=== PATIENT | female | born 1995 | race Caucasian/White ===

== ENCOUNTER → 2023-10-08 07:01 | Outpatient (REF) | payer BC, SELFPAY | LOC: PNTC 07:01 | PROVIDERS: ATTENDING PHYSICIAN Obstetrics & Gynecology | DX: O99.210 Obesity complicating pregnancy, unspecified trimester (principal); O31.11X0 Continuing pregnancy after spontaneous abortion of one fetus or more, first trimester, not applicable or unspecified | CPT/HCPCS: 76816 ==

== ENCOUNTER 2023-10-26 14:45 | Observation (INO) | payer BC, SELFPAY ==
[2023-10-26 14:52] VITALS: BP 126/68; BMI 35.8
== END 2023-10-26 16:01 | disposition home or self-care (01) ==
LOC: LDRP 14:45
PROVIDERS: ADMITTING PHYSICIAN Obstetrics & Gynecology; FAMILY PHYSICIAN Internal Medicine
DX: O36.8130 Decreased fetal movements, third trimester, not applicable or unspecified (principal); Z3A.34 34 weeks gestation of pregnancy
CPT/HCPCS: G0378

== ENCOUNTER 2023-11-18 01:32 | Observation (INO) | payer BC, SELFPAY ==
[2023-11-18 02:18] VITALS: BP 124/72; BMI 37.1
== END 2023-11-18 03:12 | disposition home or self-care (01) ==
LOC: LDRP 01:32
PROVIDERS: ADMITTING PHYSICIAN Obstetrics & Gynecology
DX: O47.1 False labor at or after 37 completed weeks of gestation (principal); Z3A.38 38 weeks gestation of pregnancy; Z88.1 Allergy status to other antibiotic agents; Z88.0 Allergy status to penicillin
CPT/HCPCS: 36415; 86850; 86900; 86901; G0378

== ENCOUNTER → 2023-12-07 14:06 | Outpatient (REF) | payer BC, SELFPAY | LOC: RAD 14:06 | PROVIDERS: ATTENDING PHYSICIAN Obstetrics & Gynecology; FAMILY PHYSICIAN Internal Medicine | DX: Z01.818 Encounter for other preprocedural examination (principal) | CPT/HCPCS: 76815 ==

== ENCOUNTER 2023-12-07 14:40 | Observation (INO) | payer BC, SELFPAY ==
[2023-12-07 14:46] VITALS: BP 134/81; BMI 36.8
== END 2023-12-07 15:30 | disposition home or self-care (01) ==
LOC: LDRP 14:40
PROVIDERS: ADMITTING PHYSICIAN Obstetrics & Gynecology; FAMILY PHYSICIAN Obstetrics & Gynecology
DX: O47.1 False labor at or after 37 completed weeks of gestation (principal); Z3A.40 40 weeks gestation of pregnancy
CPT/HCPCS: 76815; G0378

== ENCOUNTER 2023-12-10 19:30 | Inpatient (IN) | payer BC, SELFPAY ==
[2023-12-10 20:05] VITALS: BMI 36.8
[2023-12-10 21:05] LABS: % Basophils 0.3 % (0-2); % Eosinophils 0.8 % (0-6); % Immature Granulocytes 0.6 % (0-0.5); % Lymphocytes 19.9 % (20.5-51.1); % Monocytes 7.1 % (1.7-9.3); % Neutrophils 71.3 % (42.2-75.2); Absolute Eosinophils 0.1 10^3/uL (0-0.7); Absolute Immature Granulocytes 0.1 10^3/uL (0-0.05); Absolute Lymphocytes 2.4 10^3/uL (1.2-3.4); Absolute Monocytes 0.8 10^3/uL (0.1-0.6); Absolute Neutrophils 8.5 10^3/uL (1.4-6.5); Hematocrit 33.9 % (37.0-47.0); Hemoglobin 12.3 g/dL (12.0-16.0); Mean Corp Hgb Conc. 36.3 g/dL (33.0-37.0); Mean Corpuscular Hgb 32.6 pg (27.0-31.0); Mean Corpuscular Volume 89.9 fL (81.0-99.0); Nucleated Red Blood Cells % 0 %; Platelet Count 220 10^3/uL (130-400); Red Blood Cell Count 3.77 10^6/uL (4.20-5.40); White Blood Cell Count 11.9 10^3/uL (4.8-10.8)
[2023-12-10] MEDS: CYTOTEC 50 MICROGRAM VAG (21:44)
[2023-12-10 22:07] VITALS: BP 133/82
[2023-12-11 00:42] VITALS: BMI 40.4
[2023-12-11] MEDS: CYTOTEC 25 MICROGRAM PO (02:51)
[2023-12-11] MEDS: MORPHINE SULFATE 2 MG IV (05:06)
[2023-12-11] MEDS: SUBLIMAZE 100 MCG EPIDURAL (10:31)
[2023-12-11] MEDS: FENTANYL/BUPIVACAINE 100 EPIDURAL (10:31)
[2023-12-11] MEDS: CYTOTEC PO ×2 (12:28→12:29)
[2023-12-11] MEDS: PITOCIN 30 UNITS/NSS 500 ML IV (15:15)
[2023-12-11 15:31] LABS: Cord ABG Comment CORD BLOOD
[2023-12-11 15:33] LABS: B.E. Cord ABG -1.6 mMOL/L; HCO3 Cord ABG 24.8 mmol/L; O2 Saturation % Cord ABG 57.5 %; PCO2 Cord ABG 47 mmHg; PO2 Cord ABG 22 mmHg; pH Cord ABG 7.33
[2023-12-11] MEDS: CYTOTEC 800 MCG RECTAL (15:35)
[2023-12-11] MEDS: MOTRIN 600 MG PO (18:25)
[2023-12-12] MEDS: MOTRIN 600 MG PO ×4 (00:15→19:34)
[2023-12-12 04:58] LABS: Hematocrit 29.1 % (37.0-47.0); Hemoglobin 10.3 g/dL (12.0-16.0)
[2023-12-12] MEDS: TYLENOL 650 MG PO ×3 (11:46→21:59)
[2023-12-12] MEDS: CLARITIN 10 MG PO (11:47)
[2023-12-12] MEDS: PRENATAL PLUS 1 TABLET PO (11:47)
[2023-12-13] MEDS: MOTRIN 600 MG PO ×2 (04:08→10:46)
[2023-12-13] MEDS: PRENATAL PLUS 1 TABLET PO (08:18)
[2023-12-13] MEDS: CLARITIN 10 MG PO (08:18)
[2023-12-13] MEDS: TYLENOL 650 MG PO (08:22)
[2023-12-13] MEDS: SENOKOT-S 1 TABLET PO (08:23)
[2023-12-14 14:53] LABS: Syphilis/T. pallidum Ab Reflex Negative (Negative)
== END 2023-12-13 12:00 | disposition home or self-care (01) | DRG 807 ==
LOC: LDRP 19:30
PROVIDERS: Obstetrics & Gynecology; ADMITTING PHYSICIAN Obstetrics & Gynecology
PROC: 10D07Z6 Extraction of Products of Conception, Vacuum, Via Natural or Artificial Opening (ICD-10-PCS; 2023-12-11)
PROC: 10907ZC Drainage of Amniotic Fluid, Therapeutic from Products of Conception, Via Natural or Artificial Opening (ICD-10-PCS; 2023-12-11)
PROC: 3E033VJ Introduction of Other Hormone into Peripheral Vein, Percutaneous Approach (ICD-10-PCS; 2023-12-11)
PROC: 3E0DXGC Introduction of Other Therapeutic Substance into Mouth and Pharynx, External Approach (ICD-10-PCS; 2023-12-11)
PROC: 0KQM0ZZ Repair Perineum Muscle, Open Approach (ICD-10-PCS; 2023-12-11)
DX: O48.0 Post-term pregnancy (principal); Z37.0 Single live birth; Z3A.41 41 weeks gestation of pregnancy; O76 Abnormality in fetal heart rate and rhythm complicating labor and delivery; O70.1 Second degree perineal laceration during delivery; G43.909 Migraine, unspecified, not intractable, without status migrainosus; Z88.1 Allergy status to other antibiotic agents; Z88.0 Allergy status to penicillin
CPT/HCPCS: 82803; 85014; 85018; 85025; 86780; 86850; 86900; 86901

== ENCOUNTER 2025-02-01 11:37 | Emergency (ER) | payer BC, SELFPAY ==
[2025-02-01] VITALS (7 sets, daily range): BP systolic 111–139; BP diastolic 73–90; BMI 33.9
[2025-02-01 13:14] LABS: % Basophils 0.7 % (0-2); % Eosinophils 1.2 % (0-6); % Immature Granulocytes 0.2 % (0-0.5); % Lymphocytes 23.9 % (20.5-51.1); % Monocytes 6.5 % (1.7-9.3); % Neutrophils 67.5 % (42.2-75.2); Absolute Basophils 0.1 10^3/uL (0-0.2); Absolute Eosinophils 0.1 10^3/uL (0-0.7); Absolute Lymphocytes 2.1 10^3/uL (1.2-3.4); Absolute Monocytes 0.6 10^3/uL (0.1-0.6); Absolute Neutrophils 5.8 10^3/uL (1.4-6.5); Hematocrit 40.3 % (37.0-47.0); Mean Corp Hgb Conc. 34.7 g/dL (33.0-37.0); Mean Corpuscular Hgb 32.2 pg (27.0-31.0); Mean Corpuscular Volume 92.6 fL (81.0-99.0); Nucleated Red Blood Cells % 0 %; Platelet Count 251 10^3/uL (130-400); Red Blood Cell Count 4.35 10^6/uL (4.20-5.40); Red Cell Dist. Width 11.5 % (11.5-14.5); White Blood Cell Count 8.6 10^3/uL (4.8-10.8)
[2025-02-01 13:17] LABS: ALT (SGPT) 26 U/L (0-35); AST (SGOT) 17 U/L (14-36); Albumin 4.9 g/dl (3.5-5.0); Alkaline Phosphatase 66 U/L (38-126); Blood Urea Nitrogen 14 mg/dl (7-17); Calcium 9.4 mg/dl (8.4-10.2); Carbon Dioxide 28 mmol/L (22-30); Chloride 109 mmol/L (98-107); Estimated Creatinine Clearance > 125 ml/min; Glucose 96 mg/dl (70-99); Lipase 136 U/L (23-300); Potassium 4.6 mmol/L (3.5-5.1); Sodium 141 mmol/L (135-145); Total Bilirubin 0.9 mg/dl (0.2-1.3); Total Protein 7.5 g/dl (6.3-8.2); eGFR > 60.00
[2025-02-01 13:34] LABS: Urine Albumin Negative (Neg - Trace); Urine Bilirubin Negative (Negative); Urine Character Clear (Clear); Urine Color Yellow; Urine Glucose Negative (Negative); Urine Ketone 1+ (Negative); Urine Leukocyte Negative (Negative); Urine Nitrite Negative (Negative); Urine Occult Blood Negative (Negative); Urine Specific Gravity 1.015 (<1.030); Urine Urobilinogen Negative (Neg - 1+); Urine pH 6.5 (5.0-9.0)
--- NOTE | 2025-02-01 15:02 | ED.GENMED ---
History of Present Illness
<ELZA Soria - Last Filed: 02/03/25 13:03>
General
Chief Complaint: Abdominal Pain
Source: patient
Exam Limitations: none
Time Seen by Provider: 02/01/25 12:49
Nursing documentation reviewed up to this point in time: agreed with
History of Present Illness
History of Present Illness:
29-year-old female presents to the ER for evaluation. Pt reports that in the middle of the night she noted sharp left lower quadrant pain. Pain is gotten progressively worse and has intensified. She has felt now wrapping around to her left back.
She denies any urinary urgency burning or frequency but feels that pain does intensify when she urinates and this left lower quadrant region.
She is not sure if she has light spotting today her normal last menstrual pair was 2 weeks ago.
She is 1 para 1.
Review of Systems
<ELZA Soria - Last Filed: 02/03/25 13:03>
Review of Systems
Allergies reviewed?: Yes
All Other Systems: ROS reviewed and negative except as documented in HPI and ROS
Constitutional: Reports no symptoms; Denies fever, fatigue or chills
Respiratory: Reports no symptoms
Cardiac: Reports no symptoms
ABD/GI: Reports abdominal pain; Denies nausea, vomiting or diarrhea
: Reports flank pain; Denies urgency
Musculoskeletal: Reports other (left lower back/flank pain )
Skin: Reports no symptoms
Psychiatric: Reports no symptoms
Phy Exam
<ELZA Soria - Last Filed: 02/03/25 13:03>
General Physical Exam
General Presentation: no apparent distress
General age: appears stated age
General Skin: warm and dry
General Habitus: normal
General Mental: alert
General Hydration: appears well hydrated
Gastrointestinal Exam
Gastrointestinal Exam: non tender and soft
Neurological Exam
Neurological Exam: alert and oriented x3
Musculoskeletal Exam
Musculoskeletal Exam: full ROM
Skin Exam
Skin Exam: normal color and warm/dry
Psychiatric Exam
Psychiatric Exam: normal mood/affect
Course
<ELZA Soria - Last Filed: 02/03/25 13:03>
Orders/Labs/Results
Orders:
Orders
02/01/25 12:50
Urinalysis Reflex To Culture Urgent
Date Specimen was Collected: 02/01/25
Time Specimen was Collected: 12:46
02/01/25 12:57
Complete Blood Count/With Diff Urgent
Comprehensive Metabolic Panel Urgent
HCG, Serum Qualitative Screen Urgent
Comment: ADD ON
Lipase Urgent
02/01/25 15:08
Add On- LAB Urgent
Tests Added?: HCG qualitative
Ketorolac [Toradol] 15 mg IV NOW STA
US Pelvis Only (non-obstetric) Urgent
Comment:
Reason For Exam: llq pain
02/01/25 15:10
CT Abd/pel Without Iv Or Oral Urgent
Comment:
Reason For Exam: left flank pain
02/01/25 15:12
0.9% Sodium Chloride 1000 ml [Nss] 1,000 ml IV BOLUS
Abnormal Lab Results
02/01/25 02/01/25
12:50 12:57
MCH 32.2 H pg
(27.0-31.0)
Chloride 109 H mmol/L
(98-107)
Urine Ketones 1+ A
(Negative)
02/01/25 12:57
02/01/25 12:57
Vital Signs
Initial and Last Documented VS:
Initial Vital Signs
Temp Pulse Resp BP Pulse Ox
97.6 F 67 18 139/90 100
02/01/25 11:39 06/01/25 11:39 02/01/25 11:39 02/01/25 11:39 02/01/25 11:39
Last Documented Vital Signs
Temp Pulse Resp BP Pulse Ox
97.6 F 67 18 117/75 98
02/01/25 11:39 02/01/25 11:39 02/01/25 11:39 02/01/25 17:00 02/01/25 17:15
<Karl Gooden Jr., PA-Sunny - Last Filed: 02/01/25 17:43>
Orders/Labs/Results
Orders:
Orders
02/01/25 12:50
Urinalysis Reflex To Culture Urgent
Date Specimen was Collected: 02/01/25
Time Specimen was Collected: 12:46
02/01/25 12:57
Complete Blood Count/With Diff Urgent
Comprehensive Metabolic Panel Urgent
HCG, Serum Qualitative Screen Urgent
Comment: ADD ON
Lipase Urgent
02/01/25 15:08
Add On- LAB Urgent
Tests Added?: HCG qualitative
Ketorolac [Toradol] 15 mg IV NOW STA
US Pelvis Only (non-obstetric) Urgent
Comment:
Reason For Exam: llq pain
02/01/25 15:10
CT Abd/pel Without Iv Or Oral Urgent
Comment:
Reason For Exam: left flank pain
02/01/25 15:12
0.9% Sodium Chloride 1000 ml [Nss] 1,000 ml IV BOLUS
Abnormal Lab Results
02/01/25 02/01/25
12:50 12:57
MCH 32.2 H pg
(27.0-31.0)
Chloride 109 H mmol/L
(98-107)
Urine Ketones 1+ A
(Negative)
02/01/25 12:57
02/01/25 12:57
Vital Signs
Initial and Last Documented VS:
Initial Vital Signs
Temp Pulse Resp BP Pulse Ox
97.6 F 67 18 139/90 100
02/01/25 11:39 02/01/25 11:39 02/01/25 11:39 02/01/25 11:39 02/01/25 11:39
Last Documented Vital Signs
Temp Pulse Resp BP Pulse Ox
97.6 F 67 18 117/75 98
02/01/25 11:39 02/01/25 11:39 02/01/25 11:39 02/01/25 17:00 02/01/25 17:15
<ELZA Soria - Last Filed: 02/03/25 13:03>
MDM/Problems Addressed
MDM/Problems Addressed:
labs nml, imaging pending, pt very comfortable after Toradol.
Will check CAT scan to rule out kidney stone and US to look at ovary. If all imaging is negative patient stable to discharge home. Care of patient this time transferred to Ed MITA Gooden.
<ELZA Soria - Last Filed: 02/03/25 13:03>
*Radiology
Radiology exam reviewed: radiology read reviewed
*Pulse Oximetry
Patient hypoxic: no
<Karl Gooden Jr., PA-C - Last Filed: 02/01/25 17:43>
*Critical Care Note
Total Time (30-74mins, 75-104mins- exclusive of procedures): Not Applicable
<Karl Gooden Jr., PA-C - Last Filed: 02/01/25 17:43>
Update Note
Update Note:
CT abdomen pelvis as well as ultrasound of the pelvis without emergent findings. Patient no distress with significant improvement of symptoms. No evidence of any life-threatening process at this time. Advised for close outpatient follow-up.
Return precautions given.
ED Attending Note
<ELZA Soria - Last Filed: 02/03/25 13:03>
-
Portions of this chart may have been created with voice recognition software.� Occasional wrong word or��sound alike� substitutions may have occurred due to the inherent limitations of voice recognition software.
Discharge Plan
Departure
Patient Disposition: Home (Routine Discharge)
Date of Disposition: 02/01/25
Time of Disposition: 17:40
Patient with high blood pressure during this ER visit?: No
Condition: Good
Covid-19: Not Applicable
Discharge Problem:
Abdominal pain
Instructions: Abdominal Pain
Prescriptions:
No Action
prenat.vits,juana,tej-jhtl-pyygo Tablet
1 tab PO DAILY
loratadine [Claritin] 10 mg Tablet
10 mg PO DAILY
ibuprofen 600 mg Tablet
600 mg PO Q6HPRN PRN (Reason: moderate pain/cramps) Qty: 90 0RF
Referrals:
Jean Daniels, DO [Family Provider, Internal Medicine]
Activity Restrictions/Additional Instructions:
You came to the emergency department today with concerns of abdominal pain. You had a reassuring assessment. Please will close with your primary care doctor within a week. Return for any worsening, new or concerning symptoms.
Interventions
Interventions:
*Risk Screen - Suicide Last Done: 02/01/25 11:39
*General Assessment Last Done: 02/01/25 11:39
*Neglect/Abuse Screening Last Done: 02/01/25 11:39
*ED- Fall Risk Assessment Last Done: 02/01/25 12:45
*ED COVID-19 Vaccine History Last Done: 02/01/25 12:45
*Nursing Disposition Last Done: 02/01/25 17:54
BI-Pzzfmw-Sqdmzgtulf Assessment Last Done: 02/01/25 12:45
Discharge Date and Time
Discharge Date/Time: 02/01/25 18:03
Print Language: BENGALI
[2025-02-01] MEDS: TORADOL 15 MG IV (15:25)
[2025-02-01] MEDS: NSS 1000 IV (15:25)
[2025-02-01 15:36] LABS: HCG, Serum Qualitative Screen Negative
== END 2025-02-01 18:03 | disposition home or self-care (01) ==
LOC: EMR 11:37
PROVIDERS: EMERGENCY PHYSICIAN Student in an Organized Health Care Education/Training Program; FAMILY PHYSICIAN Internal Medicine
DX: R10.32 Left lower quadrant pain (principal)
CPT/HCPCS: 96374; 96361; 99284; 74176; 76856; 80053; 81003; 83690; 84703; 85025

== ENCOUNTER 2025-04-23 16:36 | Emergency (ER) | payer BC, SELFPAY ==
[2025-04-23 16:44] VITALS: BP 123/72
[2025-04-23 17:10] LABS: Hematocrit 37.5 % (37.0-47.0); Hemoglobin 13.0 g/dL (12.0-16.0); Mean Corp Hgb Conc. 34.7 g/dL (33.0-37.0); Mean Corpuscular Volume 91.2 fL (81.0-99.0); Nucleated Red Blood Cells % 0 %; Platelet Count 264 10^3/uL (130-400); Red Cell Dist. Width 11.9 % (11.5-14.5)
--- NOTE | 2025-04-23 17:27 | ED.GENMED ---
History of Present Illness
General
Chief Complaint: Abdominal Symptoms
Source: patient
Exam Limitations: none
Time Seen by Provider: 04/23/25 17:14
Nursing documentation reviewed up to this point in time: agreed with
History of Present Illness
History of Present Illness:
Patient is a 29-year-old female approximate weeks 4 days followed by [facility] presents to the ER for evaluation nausea vomiting. Patient is approximate 8 weeks 4 days and she has been vomiting for the
past 2 and half weeks unable to tolerate oral fluids. She is on Unisom and B6 without relief. She does report a prescription for Reglan was called in however she did not take it yet. She did have a normal ultrasound done today. Her last
menstrual period was 02/22 and her estimated due date is 11/29/25.
She denies any abdominal pain or vaginal bleeding. Denies any urinary frequency or urgency.
Phy Exam
General Physical Exam
General Presentation: no apparent distress
General age: appears stated age
General Skin: warm and dry
General Habitus: normal
General Mental: alert
General Hydration: appears well hydrated
Cardiovascular Exam
Cardiovascular Exam: regular rate/rhythm, no murmur and normal peripheral pulses
Pulmonary Exam
Pulmonary Exam: lungs clear and no respiratory distress
Gastrointestinal Exam
Gastrointestinal Exam: normal bowel sounds, non tender and soft
Course
Orders/Labs/Results
Orders:
Orders
04/23/25 16:57
Complete Blood Count/With Diff Urgent
Comprehensive Metabolic Panel Urgent
HCG, Beta Quantitative [Beta HCG Quantitative] Urgent
Is this a screen?: No
04/23/25 17:43
0.9% Sodium Chloride 1000 ml [Nss] 1,000 ml IV BOLUS
Metoclopramide [Reglan] 10 mg IV NOW STA
04/23/25 19:12
UA Reflex to Culture [Urinalysis Reflex To Culture] Urgent
Date Specimen was Collected: 04/23/25
Time Specimen was Collected: 19:07
Urine Microscopic Reflex Cult Urgent
Urine Culture Urgent
JODIE Source: U
Specimen Description:
Date Specimen was Collected: 04/23/25
Time Specimen was Collected: 19:07
Abnormal Lab Results
04/23/25 04/23/25
16:57 19:12
RBC 4.11 L 10^6/uL
(4.20-5.40)
MCH 31.6 H pg
(27.0-31.0)
MPV 10.5 H fL
(7.4-10.4)
ALT 66 H U/L
(0-35)
Urine Ketones 3+ A
(Negative)
Urine Bacteria (Reflex) Moderate A
(Negative)
Urine Albumin (Reflex) 2+ A
(Neg - Trace)
04/23/25 16:57
04/23/25 16:57
Vital Signs
Initial and Last Documented VS:
Initial Vital Signs
Temp Pulse Resp BP Pulse Ox
98.7 F 62 18 123/72 100
04/23/25 16:44 04/23/25 16:44 04/23/25 16:44 04/23/25 16:44 04/23/25 16:44
Last Documented Vital Signs
Temp Pulse Resp BP Pulse Ox
98.7 F 62 18 123/72 100
04/23/25 16:44 04/23/25 16:44 04/23/25 16:44 04/23/25 16:44 04/23/25 17:28
MDM/Problems Addressed
Differential Diagnosis Includes:
not limited to: Hyperemesis gravidarum dehydration electrolyte abnormality
MDM/Problems Addressed:
Pt 8 wk presenting w/ hyperemesis.
She had no complaints of abdominal pain or bleeding. She does have an ultrasound done today which was normal. She is followed by [facility]. She is prescribed Unisom and vitamin B6 which is not working. She was
prescribed Reglan however did not take it yet. Patient presented awake alert no acute distress abdomen soft nontender. Patient was given Reglan fluids feeling much better here urinated 3+ ketones in urine but tolerating fluids and would like to go
home. She has Reglan at home to take if needed . No UTI s/s
*Pulse Oximetry
SaO2: 100
Oxygen Mode of Delivery: Room air
Patient hypoxic: no (100%RA )
*Critical Care Note
Total Time (30-74mins, 75-104mins- exclusive of procedures): Not Applicable
ED Attending Note
-
Portions of this chart may have been created with voice recognition software.� Occasional wrong word or��sound alike� substitutions may have occurred due to the inherent limitations of voice recognition software.
Discharge Plan
Departure
Patient Disposition: Home (Routine Discharge)
Date of Disposition: 04/23/25
Time of Disposition: 19:39
Patient with high blood pressure during this ER visit?: No
Condition: Fair
Covid-19: Not Applicable
Discharge Problem:
Hyperemesis gravidarum
Instructions: Hyperemesis Gravidarum (DC)
Prescriptions:
No Action
prenat.vits,juana,kjn-uepl-ypmms Tablet
1 tab PO DAILY
loratadine [Claritin] 10 mg Tablet
10 mg PO DAILY
ibuprofen 600 mg Tablet
600 mg PO Q6HPRN PRN (Reason: moderate pain/cramps) Qty: 90 0RF
Referrals:
Jean Daniels DO [Family Provider, Internal Medicine]
Jeanie Asif MD [Active, Gynecology]
Activity Restrictions/Additional Instructions:
Please continue to take your Reglan as needed for nausea. Continue gentle hydration. Follow-up with your [facility] as needed in the next several days and return if any worsening of symptoms
Interventions
Interventions:
*Risk Screen - Suicide Last Done: 04/23/25 18:15
*General Assessment Last Done: 04/23/25 18:15
*Neglect/Abuse Screening Last Done: 04/23/25 18:15
*ED- Fall Risk Assessment Last Done: 04/23/25 18:15
*ED COVID-19 Vaccine History Last Done: 04/23/25 18:15
AL-Bqmxmh-Ovegcibyrl Assessment Last Done: 04/23/25 18:15
Discharge Date and Time
Print Language: ALGERIAN
[2025-04-23 17:32] LABS: ALT (SGPT) 66 U/L (0-35); AST (SGOT) 19 U/L (14-36); Albumin 4.8 g/dl (3.5-5.0); Alkaline Phosphatase 52 U/L (38-126); Blood Urea Nitrogen 11 mg/dl (7-17); Calcium 9.6 mg/dl (8.4-10.2); Carbon Dioxide 23 mmol/L (22-30); Chloride 104 mmol/L (98-107); Glucose 93 mg/dl (70-99); Potassium 4.1 mmol/L (3.5-5.1); Sodium 135 mmol/L (135-145); Total Protein 7.6 g/dl (6.3-8.2); eGFR > 60.00
[2025-04-23] MEDS: NSS 1000 IV (18:05)
[2025-04-23] MEDS: REGLAN 10 MG IV (18:05)
[2025-04-23 18:16] LABS: Beta HCG Quantitative 174770.00 mIU/ml
[2025-04-23 19:27] LABS: Urine Character Clear (Clear)
[2025-04-23 19:36] LABS: Urine Red Blood Cell 0-2 /HPF (0-2); Urine Squamous Cell 16-20 /LPF (Few); Urine White Cell 0-2 /HPF (0-5)
[2025-04-23 19:48] VITALS: BP 112/66
== END 2025-04-23 20:57 | disposition home or self-care (01) ==
LOC: EMR 16:36
PROVIDERS: Emergency Medicine; Nurse Practitioner; EMERGENCY PHYSICIAN Emergency Medicine; FAMILY PHYSICIAN Internal Medicine
DX: O21.0 Mild hyperemesis gravidarum (principal); Z3A.08 8 weeks gestation of pregnancy
CPT/HCPCS: 96374; 96361; 99284; 80053; 81003; 81015; 84702; 85025; 87086

== ENCOUNTER → 2025-05-21 09:53 | Outpatient (REF) | payer BC, SELFPAY | LOC: PNTC 09:53 | PROVIDERS: ATTENDING PHYSICIAN Obstetrics & Gynecology | DX: Z36.0 Encounter for antenatal screening for chromosomal anomalies (principal); Z36.82 Encounter for antenatal screening for nuchal translucency | CPT/HCPCS: 36415; 76801; 76813 ==

== ENCOUNTER → 2025-08-14 15:15 | Emergency (ER) | payer BC, SELFPAY ==
[2025-08-14 15:16] VITALS: BP 92/66
--- NOTE | 2025-08-14 15:27 | ED.GENMED ---
History of Present Illness
General
Chief Complaint: Problems
Source: patient
Exam Limitations: none
Time Seen by Provider: 08/14/25 15:25
Nursing documentation reviewed up to this point in time: agreed with
History of Present Illness
History of Present Illness:
29-year-old female who is currently 24 weeks and 5 days . She presented with concerns of shortness of breath and palpitations which started around 9:00 AM. The patient describes feeling like her vision became blurred and unfocused,
coupled with a racing heart. She has also experienced subtle tingling sensations around the knuckles and the bottom of her fingers. She reports her breathing feels heavy, sandra to being winded after moderate exertion, despite having been stationary
at work all day. She does not report any significant pain, chest pain, headache, or gastrointestinal symptoms beyond typical nausea. She acknowledges some slight swelling around her ankles but no significant edema. The patient is currently taking
doxylamine-pyridoxine for -related nausea, having reduced her intake from two to one dose daily. 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 The patient has not had a recent
reaction but is awaiting an home specialist appointment post-.
Past History
Past History
ED Past Medical History: None
ED Past Surgical History: Other ([place] teeth)
Review of Systems
Review of Systems
Allergies reviewed?: Yes
All Other Systems: ROS reviewed and negative except as documented in HPI and ROS
Constitutional: Denies fever or fatigue
Respiratory: Reports other (Feels 'a little winded')
Cardiac: Reports palpitations; Denies chest pain
ABD/GI: Denies abdominal pain
: Denies dysuria, difficulty voiding, bleeding or discharge
Musculoskeletal: Reports no symptoms; Denies edema
Skin: Reports no symptoms
Neurological: Reports other (Tingling in hands); Denies headache
Phy Exam
Physical Exam
Physical Exam:
GENERAL: No acute distress. A&Ox3.
CONSTITUTIONAL: Afebrile.
EYES: clear, conjunctivae normal
ENMT: moist mucus membranes, Pharynx nl
RESPIRATORY: Regular respirations, nonlabored, lungs clear. Pulse ox 96% RA
CARDIOVASCULAR: Regular rate and rhythm, no murmurs, no rubs.
GI: Soft, nontender, normal BS
MUSCULOSKELETAL: Moves with ease. Well perfused.
SKIN: Warm, dry, pink
PSYCH: Normal mood and affect. Well kept, interactive and appropriate
NEUROLOGIC: Awake, alert and oriented. No focal neurological deficits
Course
Orders/Labs/Results
Orders:
Orders
08/14/25 15:29
Electrocardiogram (*1) Urgent
Reason for Study: Chest Pain
EKG- Treatment ONCE
08/14/25 16:02
Complete Blood Count/With Diff Urgent
Comprehensive Metabolic Panel Urgent
D-Dimer Urgent
Magnesium Urgent
TSH Reflex To Free T4 Urgent
Urinalysis Reflex To Culture Urgent
Date Specimen was Collected: 08/14/25
Time Specimen was Collected: 15:58
Urine Microscopic Reflex Cult Urgent
08/14/25 16:55
Visual Acuity- Treatment ONCE
08/14/25 18:33
Add On- LAB Urgent
Tests Added?: tsh
Abnormal Lab Results
08/14/25
16:02
RBC 3.89 L 10^6/uL
(4.20-5.40)
Hct 35.1 L %
(37.0-47.0)
MCH 31.4 H pg
(27.0-31.0)
MPV 10.8 H fL
(7.4-10.4)
Abs Immat Gran (auto) 0.1 H 10^3/uL
(0-0.05)
Absolute Neuts (auto) 7.7 H 10^3/uL
(1.4-6.5)
Lymphocytes % 18.7 L %
(20.5-51.1)
Sodium 134 L mmol/L
(135-145)
Carbon Dioxide 20 L mmol/L
(22-30)
Creatinine 0.5 L mg/dL
(0.6-1.0)
Glucose 150 H mg/dl
(70-99)
Urine Bacteria (Reflex) Few A
(Negative)
Urine Glucose 3+ A
(Negative)
Urine Albumin (Reflex) 1+ A
(Neg - Trace)
08/14/25 16:02
08/14/25 16:02
Vital Signs
Initial and Last Documented VS:
Initial Vital Signs
Temp Pulse Resp BP Pulse Ox
97.9 F 101 18 92/66 96
08/14/25 15:16 08/14/25 15:16 08/14/25 15:16 08/14/25 15:16 08/14/25 15:16
Last Documented Vital Signs
Temp Pulse Resp BP Pulse Ox
97.9 F 101 18 92/66 96
08/14/25 15:16 08/14/25 15:16 08/14/25 15:16 08/14/25 15:16 08/14/25 15:27
Information
Weeks gestation: Weeks: (7)
Location: Location: (intrauterine)
MDM/Problems Addressed
Differential Diagnosis Includes:
Pre eclampsia, PE, thyroid disorder, HELLP, anxiety
MDM/Problems Addressed:
29-year-old female who is currently 24 weeks and 5 days . She presented with concerns of shortness of breath and palpitations which started around 9:00 AM. The patient describes feeling like her vision became blurred and unfocused,
coupled with a racing heart. She has also experienced subtle tingling sensations around the knuckles and the bottom of her fingers. She reports her breathing feels heavy, sandra to being winded after moderate exertion, despite having been stationary
at work all day. She does not report any significant pain, chest pain, headache, or gastrointestinal symptoms beyond typical nausea. She acknowledges some slight swelling around her ankles but no significant edema. The patient is currently taking
doxylamine-pyridoxine for -related nausea, having reduced her intake from two to one dose daily. 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 The patient has not had a recent
reaction but is awaiting an home specialist appointment post-.
Afebrile, NAD
CBC with no clinically significant abnormality
CMP with no clinically significant abnormality
Magnesium normal
D dimer WNL
U/A neg, +1 albumin
6:10 PM:
Results discussed with patient and . Stable for discharge. Copy of ultrasound report given to patient
Patient has an appointment for a prescheduled ultrasound on 08/24 then will follow-up with her OB doctor. Return instructions discussed
BP 117/ HR
EKG NSR Rate 74
Visual acuity normal
Pt wears contacts and states her eyes have been dry, is due for her yearly eye exam. No significant blurred vision.
No indication of pre eclampsia, PE
Stable for discharge
*Pulse Oximetry
SaO2: 96
Oxygen Mode of Delivery: Room air
Patient hypoxic: no
*Critical Care Note
Total Time (30-74mins, 75-104mins- exclusive of procedures): Not Applicable
ED Attending Note
-
Portions of this chart may have been created with voice recognition software.� Occasional wrong word or��sound alike� substitutions may have occurred due to the inherent limitations of voice recognition software.
Discharge Plan
Departure
Patient Disposition: Home (Routine Discharge)
Date of Disposition: 08/14/25
Time of Disposition: 18:11
Patient with high blood pressure during this ER visit?: No
Condition: Good
Discharge Problem:
Normal
Instructions: Shortness of breath, symptoms, Palpitations
Prescriptions:
No Action
prenat.vits,juana,zae-jttk-qspel Tablet
1 tab PO DAILY
loratadine [Claritin] 10 mg Tablet
10 mg PO DAILY
ibuprofen 600 mg Tablet
600 mg PO Q6HPRN PRN (Reason: moderate pain/cramps) Qty: 90 0RF
Referrals:
Jean Daniels DO [Family Provider, Internal Medicine]
Morena Rosen DO [Active, Gynecology] - Keep scheduled appt
Activity Restrictions/Additional Instructions:
As we discussed, nothing worrisome in your workup here today. Keep your appointment in 08/24 for your next ultrasound.
You may return here anytime for worsening symptoms or anything that concerns you.
Discuss you glucose results with your [facility]CHNICIAN doctor
Interventions
Interventions:
*Risk Screen - Suicide Last Done: 08/14/25 15:16
*General Assessment Last Done: 08/14/25 15:16
*ED COVID-19 Vaccine History Last Done: 08/14/25 15:16
*ED Influenza Vaccine History Last Done: 08/14/25 15:16
Discharge Date and Time
Print Language: HONDURAN
[2025-08-14 16:25] LABS: Hematocrit 35.1 % (37.0-47.0); Hemoglobin 12.2 g/dL (12.0-16.0); Mean Corp Hgb Conc. 34.8 g/dL (33.0-37.0); Mean Corpuscular Volume 90.2 fL (81.0-99.0); Nucleated Red Blood Cells % 0 %; Platelet Count 221 10^3/uL (130-400); Red Cell Dist. Width 12.1 % (11.5-14.5)
[2025-08-14 16:34] LABS: D-Dimer 0.44 ug/mlFEU (0.00-0.50)
[2025-08-14 16:36] LABS: ALT (SGPT) 26 U/L (0-35); AST (SGOT) 19 U/L (14-36); Albumin 3.9 g/dl (3.5-5.0); Alkaline Phosphatase 59 U/L (38-126); Blood Urea Nitrogen 10 mg/dl (7-17); Calcium 8.8 mg/dl (8.4-10.2); Carbon Dioxide 20 mmol/L (22-30); Chloride 107 mmol/L (98-107); Glucose 150 mg/dl (70-99); Magnesium 1.8 mg/dl (1.6-2.3); Potassium 3.7 mmol/L (3.5-5.1); Sodium 134 mmol/L (135-145); Total Protein 6.8 g/dl (6.3-8.2); eGFR > 60.00
[2025-08-14 16:41] LABS: Urine Character Clear (Clear)
[2025-08-14 17:52] LABS: Urine Red Blood Cell 0-2 /HPF (0-2); Urine Urothelial Cell 0-2 /LPF (FEW); Urine White Cell 0-2 /HPF (0-5)
== END | disposition home or self-care (01) ==
LOC: EMR 15:15
PROVIDERS: Registered Nurse; EMERGENCY PHYSICIAN Emergency Medicine; FAMILY PHYSICIAN Internal Medicine; REFERRING PHYSICIAN Obstetrics & Gynecology
DX: O99.891 Other specified diseases and conditions complicating pregnancy (principal); R06.02 Shortness of breath; R00.2 Palpitations; Z3A.24 24 weeks gestation of pregnancy; Z88.0 Allergy status to penicillin
CPT/HCPCS: 99283; 80053; 81003; 81015; 83735; 84443; 85025; 85379; 93005